=== PATIENT | female | born 1945 | race Caucasian/White ===

== ENCOUNTER → 2019-03-04 12:43 | Outpatient (CLI) | payer MEDICARE, OTHER, SELFPAY ==
[2019-03-04 15:20] LABS: Cancer Antigen 125 < 6 U/mL (0-35)
== END ==
PROVIDERS: Visit Provider Obstetrics & Gynecology
DX: C54.1 Malignant neoplasm of endometrium (principal)
CPT/HCPCS: 36415; 86304

== ENCOUNTER → 2021-06-16 15:23 | Outpatient (CLI) | payer MEDICARE, OTHER, SELFPAY ==
--- NOTE | 2021-06-16 | DI.NM.S_ITS ---
PROCEDURE: NM EXERCISE TREADMILL NON NUC COMPARISON: None. INDICATIONS: Chest pain, unspecified FINDINGS: The patient exercised for 6 minutes and 0 seconds, reaching 7.0 METs, KIMMY -13%. 94% of maximum predicted heart rate achieved. Appropriate BP response to exercise. No angina during the study. No ST changes with exercise. Occasional PACs during exercise. IMPRESSION: Low risk, normal treadmill ECG only stress test with above average exercise tolerance (KIMMY -13%). Occasional PACs during exercise. No angina during the study. Dictated by: Bill Luu MD on 06/20/2021 at 10:37 Approved by: Bill Luu MD on 06/20/2021 at 10:41
== END ==
PROVIDERS: PCP Family Medicine; Referring Provider Family Medicine; Visit Provider Family Medicine
DX: R07.9 Chest pain, unspecified (principal)
CPT/HCPCS: 93017

== ENCOUNTER → 2024-02-01 10:12 | Outpatient (CLI) | payer MEDICARE, OTHER, SELFPAY ==
--- NOTE | 2024-02-01 10:14 | DI.NM.S_ITS ---
PROCEDURE: NM BONE SCAN WHOLE BODY RADIOPHARMACEUTICAL: 20.4 mCi Tc-99m MDP IV. INDICATIONS: INVASIVE CARCINOMA OF THE BREAST TECHNIQUE: Delayed whole-body scintigrams were obtained approximately 3-4 hours after intravenous injection of radiotracer. Anterior and posterior views were acquired from vertex to feet. Additional left and right oblique views of the chest were obtained. COMPARISON: None. FINDINGS: No definite osseous metastatic disease identified. Scattered areas of increased uptake within the bilateral shoulders, knees and feet are favored to be degenerative in etiology. IMPRESSION: No definite evidence of osseous metastatic disease. Dictated by: Bienvenido Corral M.D. on 02/01/2024 at 15:42 Approved by: Bienvenido Corral M.D. on 02/01/2024 at 15:45
== END ==
PROVIDERS: PCP Family Medicine; Referring Provider Internal Medicine; Visit Provider Internal Medicine
DX: C50.912 Malignant neoplasm of unspecified site of left female breast (principal); Z17.0 Estrogen receptor positive status [ER+]
CPT/HCPCS: 78306; A9503